=== PATIENT | female | born 1975 | race Caucasian/White ===

== ENCOUNTER 2017-08-23 04:57 | Emergency (ER) | payer MEDICAID ==
[~2017-08-23] VITALS: Ht 154.9 cm; Wt 70.9 kg
[~2017-08-23 04:57] MED LIST: CIPRO500 MG PO; FLA500 PO; LAC PO
[2017-08-23 05:01] VITALS: Ht 154.9 cm; Wt 70.9 kg
[2017-08-23 07:14] LABS: BASOPHIL % 0.1 % (0-2); PLATELET COUNT 272 x10^3mcL (130-400)
[2017-08-23 07:15] LABS: RED CELL DISTRIBUTION WIDTH 14.6 % (11.5-14.5)
[2017-08-23 08:23] VITALS: BP 108/71
[2017-08-23 09:31] LABS: microscopic required? YES; urine erythrocyte 3+ (NEGATIVE)
== END 2017-08-23 08:23 | disposition home or self-care (01) ==
LOC: ED 04:57
PROVIDERS: Emergency Medicine
DX: O20.0 Threatened abortion (principal); Z3A.01 Less than 8 weeks gestation of pregnancy
CPT/HCPCS: 36415

== ENCOUNTER 2017-08-23 10:47 | Emergency (ER) | payer MEDICAID ==
[~2017-08-23] VITALS: Ht 154.9 cm; Wt 70.8 kg
[2017-08-23 11:43] VITALS: Ht 154.9 cm; Wt 70.8 kg
[2017-08-23 14:45] VITALS: BP 121/79
== END 2017-08-23 14:46 | disposition home or self-care (01) ==
LOC: ED 10:47
DX: O03.9 Complete or unspecified spontaneous abortion without complication (principal)